=== PATIENT | female | born 1990 | race Caucasian/White ===

== ENCOUNTER 2023-02-24 20:01 | Emergency (ER) | payer OTHER, MEDICAID, SELFPAY ==
[2023-02-24 20:03] VITALS: BP 103/68; PULSE 85; RESP 18; TEMP 36.6; O2SAT 100; BMI 33.8
--- NOTE | 2023-02-24 20:22 | US_ITS ---
STUDY: FIRST TRIMESTER OBSTETRICAL ULTRASOUND REASON FOR EXAM: Female, 32 years old Bleeding with clots and pain --- miscarriage per recent ultrasound done elsewhere LMP: December 14, 2022 . TECHNIQUE: Transvaginal. TECHNICAL QUALITY: Adequate. PRIOR ULTRASOUND: None. FINDINGS: There is a gestational sac in the lower uterine segment. The mean sac diameter (MSD) measures 2.8 cm, indicating an estimated gestational age (EGA) of 7 weeks, 6 days. The gestational sac shape is irregular. There is no demonstrated yolk sac. The placenta is non-visualized. There is visualization of an embryo with no cardiac activity, consistent with intrauterine demise. The crown-rump length (CRL) measures 0.6 cm, indicating an estimated gestational age (EGA) of 6 weeks, 4 days. The estimated gestation age (EGA) by LMP is 10 weeks, 2 days. The estimated date of delivery (HARRY) by LMP is September 20, 2023. The estimated gestation age (EGA) by US is 7 weeks, 2 days. The estimated date of delivery (HARRY) by US is October 11, 2023. The uterus measures 11.5 x 5.9 x 5.0 cm. There is no demonstrated uterine fibroid. The cervix is closed. The right ovary measures 2.9 x 2.2 x 1.5 cm. There is no right ovarian cyst. There is no visualized right adnexal mass or complex lesion. The left ovary measures 2.8 x 2.4 x 2.0 cm. There is no left ovarian cyst. There is no visualized left adnexal mass or complex lesion. There is no fluid in the cul de sac. US/Transvaginal w/Preg US IMPRESSION: demise in utero 7 weeks 2 days. Irregular gestational sac is present at the lower uterus. Electronically Signed: Sonu Vieira MD at 21:39 EDT ,
--- NOTE | 2023-02-24 20:24 | EDS_ITS ---
HPI HPI - Female History of Present Illness Chief Complaint: Vag Bld, Preg Informant: patient Narrative Narrative: Patient presents with vaginal bleeding and pelvic pain. Is a G4, P2 female. She had a miscarriage in June. Last menstrual period was thought to be December 14. She sees a [facility] doc in [facility] but has not actually seen them yet. 1 week ago on Tuesday she started having vaginal bleeding. She was seen at [place] emergency department. They did asked terminal ultrasound. She was then transferred to [facility]. They did pelvic ultrasound and told her she was likely having a miscarriage. She does not know what her blood type is. She is not sure of the details. I do not have access to that information at this time. Since that time she has been having intermittent bleeding and cramping. She is having clots. When asked if she had tissue she said yes she had a big clot before she came in but I do not know if she saw tissue in it. All her pain is in the low central pelvic area. No urinary symptoms. She is not getting lightheaded dizzy. No history of tubal surgery or ectopics. No indication by prior visits or what the patient is telling me that there is a ectopic suspected. [facility] Medical History Miscarriage Home Medications NK 02/24/23 [History Last Taken Unknown] naproxen 500 mg tablet 500 mg PO BID #14 tabs 02/24/23 [Rx Last Taken Unknown] Allergy/AdvReac Type Severity Reaction Status Date / Time No Known Allergies Allergy Verified 02/24/23 20:03 Social History Smoking Status: Former smoker ROS ROS ED ROS Narrative A complete review of systems was performed and is negative except as documented in the history of present illness. Some specific details below. Constitutional: No recent fevers or chills. ENT: No difficulty swallowing. No swelling. No pain. CV: No chest pain or palpitations. Not syncopal or near syncopal. Respiratory: No dyspnea. No hemoptysis. No difficulty taking breaths. GI: No nausea vomiting diarrhea. No blood in the stool. She has been able to eat and drink without difficulties. : See history of present illness. Musculoskeletal: No recent trauma. No pains including no pains in her back. Skin: No rash. Nondiaphoretic. Neuro: No weakness or numbness. Endocrine: No polyuria or polydipsia. EXAM Physical Exam Narrative Exam Narrative: CONSTITUTIONAL: Patient is nontoxic in appearance. The patient looks comfortable. Occasionally she does get cramping and then this relaxes. HEENT: No notable trauma. Mucous membranes moist. No sinus tenderness. No indication of pain with swallowing. EYES: No conjunctival injection. No proptosis. I do not notice any pallor. CARDIOVASCULAR: Regular rate and not tachycardic. Regular rhythm. No notable murmur. No JVD. RESPIRATORY: No respiratory distress. Breathing is unlabored. No wheezes. No rhonchi. No rales. No pain with a deep breath. GASTROINTESTINAL: Not distended. Bowel sounds are normal. No tenderness. No guarding. No rebound. No palpable mass. No bruit. She really does not have any tenderness on exam. She more has pain and cramping but not tender. GENITOURINARY: No tenderness over the bladder. No CVA tenderness. MUSCULOSKELETAL: Atraumatic. No peripheral edema. No cord. No tenderness along the deep venous system. No asymmetry. NEUROLOGICAL: Patient is alert and appropriate. No focal deficit noted. SKIN: No noted rashes. No diaphoresis. PSYCHIATRIC: Patient is calm. Mood is appropriate. Const Vital Signs: 02/24/23 20:03 Temperature 97.8 F Temperature Source Oral Pulse Rate 85 Respiratory Rate 18 Blood Pressure 103/68 Blood Pressure Mean 79 Pulse Ox 100 Oxygen Delivery Method Room Air MDM MDM MDM Narrative Medical decision making narrative: Patient CBC is normal including white count hemoglobin and platelets. Patient's electrolytes show no marked abnormalities. Minimal decrease of sodium at 135 that does not need treatment. Quantitative beta-hCG is 1811. This is rather low for 7 weeks. Patient's ultrasound shows intrauterine demise at 7 weeks 2 days. No heartbeat is seen. I talked with patient about options. She feels more comfortable now. No tissue is passed. We discussed exam. But I did explain that this is likely a miscarriage. She has had some bleeding and spotting off and on for a week. Occasional mild cramps but then the cramping increased tonight. She is likely going to expel some blood and possibly small amount of tissue over the next 1 to 3 days. She is only 7 weeks and 2 days so I think her chance of needing a D&C is relatively low. Since she is not having heavy bleeding. Her hemoglobin is s table. She is reasonably comfortable I do not think we need to take her to surgery tonight. I explained reasons to follow-up. She should call her [facility] physician in the next day for close follow-up. They will also likely follow her hormone levels out until negative. Lab Data Attestation: I reviewed the patient's lab results. Labs: Laboratory Results - last 24 hr 02/24/23 20:35 WBC 10.7 RBC 4.01 L Hgb 12.1 Hct 37.2 MCV 92.8 MCH 30.2 MCHC 32.5 RDW Std Deviation 42.3 RDW Coeff of Annette 12.3 Plt Count 327 MPV 9.6 Immature Gran % (Auto) 0.300 Neut % (Auto) 60.4 Lymph % (Auto) 30.5 Teller % (Auto) 6.3 Eos % (Auto) 1.8 Baso % (Auto) 0.7 Absolute Neuts (auto) 6.5 Absolute Lymphs (auto) 3.28 Nucleated RBC % 0 Sodium 135 L Potassium 3.7 Chloride 105 Carbon Dioxide 27.0 Anion Gap 3 L BUN 9 Creatinine 0.92 Estim Creat Clear Calc 81.42 Est GFR (MDRD) Af Amer 90 Est GFR (MDRD) Non-Af 75 BUN/Creatinine Ratio 9.8 L Glucose 81 Calcium 8.8 HCG, Quant 1811 H Serum , Qual POSITIVE H Radiography Diagnostic Testing: Clinical Impression(s) from Imaging Studies Obstetrics Ultrasound 02/24/23 20:22 IMPRESSION: demise in utero 7 weeks 2 days. Irregular gestational sac is present at the lower uterus. Electronically Signed: Sonu Vieira MD at 21:39 EDT , Discharge Plan Triage Chief Complaint: Vag Bld, Preg ED Provider: [place] Dx/Rx/DC Orders Clinical Impression: demise, less than 22 weeks, Vaginal bleeding during , , inevitable Instructions: ED Miscarriage Spontaneous Prescriptions: New naproxen 500 mg tablet 500 mg PO BID Qty: 14 0RF No Action NK Primary Care Provider: Care Physician,No Primary Referrals: NOT,DEFINED [Non-Staff] - Activity Restrictions/Additional Instructions: See your date puller as soon as possible. Disposition Disposition: Home, Self Care
[2023-02-24 20:44] LABS: Absolute Lymphocyte Count 3.28 X10^3/uL (0.83-4.51); Absolute Neutrophil Count 6.5 X10^3/uL (2.0-7.7); Basophil# 0.07 X10^3/uL; Basophil% 0.7 % (0-1); Eosinophil# 0.19 X10^3/uL; Eosinophils% 1.8 % (0-5); Hematocrit 37.2 % (37-47); Hemoglobin 12.1 g/dL (12.0-15.0); Lymphocyte # 3.28 X10^3/ul (0.83-4.51); Lymphocyte % 30.5 % (19-41); Mean Corp Hgb Conc 32.5 g/dL (32-36); Mean Corpuscular Hgb 30.2 pg (27.0-32.0); Mean Corpuscular Volume 92.8 fL (81-99); Mean Platelet Vol. 9.6 fl (6.2-12.0); Monocyte# 0.68 X10^3/uL; Monocyte% 6.3 % (0-10); NRBC Flagged by Analyzer 0 % (0-5); Neutrophil # 6.49 X10^3/uL (2.7-7.7); Neutrophil % 60.4 % (47-70); Platelet Count 327 K/mm3 (150-450); RBC Distribution Width CV 12.3 % (11.6-14.6); RBC Distribution Width SD 42.3 fl (35.1-43.9); Red Blood Count 4.01 M/mm3 (4.2-5.4); White Blood Count 10.7 K/mm3 (4.4-11.0)
[2023-02-24] MEDS: 0.9% Normal Saline (1000mL) 1,000 ML 1000 ML IV (20:47)
[2023-02-24 21:08] LABS: Internal QC Validated? YES +Cl - CLEAR BKGD
[2023-02-24 21:09] LABS: Pregnancy, Serum, hCG Quali. POSITIVE Negative
[2023-02-24 21:15] LABS: Anion Gap 3 (5-15); BUN 9 mg/dL (7-18); BUN/Creat Ratio 9.8 RATIO (10-20); Calcium,Total 8.8 mg/dL (8.5-10.1); Chloride 105 mmol/L (98-107); Creatinine, Serum 0.92 mg/dL (0.55-1.02); EST Glomerular Filtration Rate 75 mL/min (>60); Est Glom Filt Rate - Afr Amer 90 mL/min (>60); Estimated Creatinine Clearance 81.42 ml/min; Glucose 81 mg/dL (74-106); Potassium 3.7 mmol/L (3.5-5.1); Sodium Level 135 mmol/L (136-145)
[2023-02-24 21:54] LABS: hCG Titer Quant., Serum 1811 mIU/mL (1-3)
[2023-02-24] MEDS: Ketorolac 15 MG/ML Vial IV (23:25)
== END 2023-02-24 23:40 | disposition home or self-care (01) ==
PROVIDERS: Emergency Provider Emergency Medicine; Visit Provider Emergency Medicine
DX: O02.1 Missed abortion (principal); O26.852 Spotting complicating pregnancy, second trimester; Z87.891 Personal history of nicotine dependence
CPT/HCPCS: 76817; 80048; 84702; 84703; 85025; 86900; 86901; 96361; 96374; 99285; J7030; A4216